=== PATIENT | male | born 2000 | race Caucasian/White ===

== ENCOUNTER 2018-04-06 00:22 | Emergency (ER) | payer OTHER ==
[2018-04-06] MEDS ORDERED: SKIN ADHESIVE (DERMABOND) 1 EACH TP ONE (02:02)
--- NOTE | 2018-04-06 02:08 | EDPHY ---
H & P Stated Complaint: ETOH, FALL DOWN FLIGHT OF STAIRS, EYEBROW LACERATION Time Seen by Provider: 04/06/18 00:51 HPI/ROS: HPI: The patient presents with fall down 1 flight of stairs, brought in by friends who witnessed his fall. Apparently, he had been drinking alcohol and smoking marijuana just prior to this. It is not clear if he lost consciousness. He has sustained a right eyebrow laceration. He has not had any nausea or vomiting. He does not have any changes to his vision. REVIEW OF SYSTEMS Constitutional: No fever, no chills. Eyes: No discharge. ENT: No sore throat. Cardiovascular: No chest pain, no palpitations. Respiratory: No cough, no shortness of breath. Gastrointestinal: No abdominal pain, no vomiting. Genitourinary: No hematuria. Musculoskeletal: No back pain. Skin: No rashes. Neurological: No headache. PMHx: History of asthma, college student TRAUMA PHYSICAL General Appearance: Alert, no distress Head: Right upper lateral eyelid with 1.5 cm gaping laceration which is not through and through Eyes: Pupils equal, round, reactive ENT, Mouth: No hemotypanium, no oral trauma Neck: Non- tender, trachea midline Respiratory: No chest wall tenderness, no subcutaneous air, lungs clear bilaterally Cardiovascular: Regular rate and rhythm Abdomen: Abdomen is soft and non-tender, pelvis stable Skin: No abrasion Back: No midline T/L/S pain Extremities: Non-tender, full range of motion Neurological: A&Ox3, GCS=15,normal motor function with 5/5 strength in all 4 extremities, normal sensory exam Source: Patient, Family, Other - Personal History Current Tetanus Diphtheria and Acellular Pertussis (TDAP): Yes - Medical/Surgical History Hx Asthma: No Hx Chronic Respiratory Disease: No Hx Diabetes: No Hx Cardiac Disease: No Hx Renal Disease: No Hx Cirrhosis: No Hx Alcoholism: No Hx HIV/AIDS: No Hx Splenectomy or Spleen Trauma: No Other PMH: DENIES - Social History Smoking Status: Never smoked Constitutional: Initial Vital Signs Temperature (C) 36.4 C 04/06/18 00:27 Heart Rate 75 04/06/18 00:27 Respiratory Rate 19 04/06/18 00:27 Blood Pressure 123/80 H 04/06/18 00:27 O2 Sat (%) 96 04/06/18 00:27 O2 Delivery Mode Room Air Allergies/Adverse Reactions: No Known Allergies Allergy (Unverified 04/06/18 00:27) Medical Decision Making - Diagnostics Imaging Results: CT head and C-spine without contrast demonstrate right maxillary sinus fractures nondisplaced discussed with Dr. Mayers of Radiology. Imaging: Discussed imaging studies w/ faculty i on call medical assistant Radiologist Procedures: LACERATION REPAIR Procedure: Laceration repair. Verbal consent was obtained from the patient. The linear 1.5 cm laceration on the right upper eyelid was anesthetized using lidocaine with epinephrine. The wound was scrubbed, draped and explored to its base with a gloved finger. There were no deep structures involved. . The wound was repaired with 1 deep dermal suture of 5-0 Vicryl, followed by 1 simple interrupted epidermal suture and 2 horizontal mattress sutures of 5-0 nylon. The wound repair was complex. The procedure was performed by myself. Differential Diagnosis: 17-year-old male presents after fall down 1 flight of stairs sustaining right upper eyelid laceration with questionable loss of consciousness. He admits to using alcohol and marijuana prior to this injury. Here, he appears intoxicated with a nonfocal neurologic exam though he is sedate. CT of head and C-spine were performed and were remarkable for right nondisplaced maxillary sinus fractures. Laceration was repaired and the patient was eventually able to walk with a steady gait and was discharged home with his parents. We discussed wound care and management of his maxillary fractures. - Data Points Laboratory Results: 04/06/18 00:43 Ethyl Alcohol 293 mg/dL H mg/dL (0-10) Departure - Departure Disposition: Home, Routine, Self-Care Clinical Impression: Alcoholic intoxication Qualifiers: Complication of substance-induced condition: with delirium Qualified Code(s): F10.921 - Alcohol use, unspecified with intoxication delirium Marijuana intoxication Qualifiers: Complication of substance-induced condition: with delirium Qualified Code(s): F12.921 - Cannabis use, unspecified with intoxication delirium Fall down stairs Qualifiers: Encounter type: initial encounter Qualified Code(s): W10.8XXA - Fall (on) (from ) other stairs and steps, initial encounter Laceration of eyebrow, right Qualifiers: Encounter type: initial encounter Qualified Code(s): S01.111A - Laceration without foreign body of right eyelid and periocular area, initial encounter Maxillary sinus fracture Qualifiers: Encounter type: initial encounter Fracture type: closed Qualified Code(s): S02.401A - Maxillary fracture, unspecified side, initial encounter for closed fracture Condition: Good Instructions: Care For Your Stitches (ED), Facial Fracture (ED), At-Risk Alcohol Use (ED), Facial Laceration (ED) Additional Instructions: The stitches should be removed in 5 days on TuesdayApril 11. You should keep the wound covered and put antibiotic ointment on it with a bandage. If there is any redness, warmth, drainage from the wound you should return to the emergency department. The CT scan of your head showed that you have a fracture of your maxillary bone on the right. This should heal on its own, however we recommend follow-up with ENT and I have given you information for the doctor you should call. You should use ice packs on your face to help with the swelling. You should avoid blowing her nose. Referrals: Ravinder Lin MD [Medical Doctor] - As per Instructions
[2018-04-06 02:20] VITALS: BP 122/72
== END 2018-04-06 03:09 | disposition home or self-care (01) ==
PROC: 08QNXZZ Repair Right Upper Eyelid, External Approach (ICD-10-PCS; principal; 2018-04-06)
DX: F10.921 Alcohol use, unspecified with intoxication delirium (principal); S01.111A Laceration without foreign body of right eyelid and periocular area, initial encounter; S02.40CA Maxillary fracture, right side, initial encounter for closed fracture; W10.8XXA Fall (on) (from) other stairs and steps, initial encounter; Y90.8 Blood alcohol level of 240 mg/100 ml or more; Y99.8 Other external cause status
CPT/HCPCS: G0480